=== PATIENT | female | born 1985 | race Caucasian/White ===

== ENCOUNTER 2020-05-22 14:56 | Emergency (ER) | payer OTHER ==
[~2020-05-22] VITALS: Ht 149.9 cm; Wt 55.3 kg
[2020-05-22 15:02] VITALS: Ht 149.9 cm; Wt 55.3 kg
[2020-05-22 17:00] VITALS: BP 121/84
== END 2020-05-22 18:52 | disposition home or self-care (01) ==
LOC: ED 14:56
DX: S39.012A Strain of muscle, fascia and tendon of lower back, initial encounter (principal); X50.9XXA Other and unspecified overexertion or strenuous movements or postures, initial encounter; Y93.89 Activity, other specified; Y92.89 Other specified places as the place of occurrence of the external cause; Y99.8 Other external cause status